=== PATIENT | male | born 1985 | race Two or more races ===

== ENCOUNTER 2024-04-30 11:24 | Inpatient (IN) | payer MEDICAID, OTHER ==
[~2024-04-30] VITALS: Ht 165.1 cm; Wt 72.5 kg
[2024-04-30] MEDS: SODIUM CHLORIDE 0.9% 1,000 ML IV ONE ×2 (11:42→12:11)
[2024-04-30 12:30] LABS: Basophils # (auto) 0 10 ^3/uL (0-0.2); Basophils % (auto) 0.7 % (0.0-2.0); Eosinophils # (auto) 0 10 ^3/uL (0-0.8); Eosinophils % (auto) 0.7 % (0.0-7.0); Hematocrit 45.2 % (41.0-53.0); Hemoglobin 15.4 g/dL (13.5-17.5); Lymphocytes # (auto) 0.9 10 ^3/uL (0.4-5.4); Lymphocytes % (auto) 14.8 % (10.0-50.0); Mean Corpuscular Hemoglobin 31.2 pg (28.0-32.0); Mean Corpuscular Volume 91.9 fL (80.0-100.0); Monocytes # (auto) 0.7 10 ^3/uL (0-1.3); Monocytes % (auto) 10.5 % (0.0-12.0); Neutrophils # (auto) 4.5 10 ^3/uL (1.6-8.6); Neutrophils % (auto) 73.3 % (37.0-80.0); Nucleated Red Blood Cells % 0.3 %; Platelet Count (auto) 250 10^3/uL (140-450); Red Blood Cells 4.92 10^6/uL (4.5-5.90); Red Cell Distribution Width 12.9 % (11.8-14.3); White Blood Cell 6.2 10^3/uL (4.4-10.8)
[2024-04-30 12:39] LABS: Chloride 110 mmol/L (98-107); Potassium 3.6 mmol/L (3.5-5.1); Sodium 142 mmol/L (136-145)
[2024-04-30 12:40] LABS: Anion Gap 5 (5-15); Calcium 8.7 mg/dL (8.7-10.4); Carbon Dioxide 27 mmol/L (20-30)
[2024-04-30 12:44] LABS: INR 1.09 (0.9-1.15); Partial Thromboplastin Time 31.6 SEC (24.5-34.5); Prothrombin Time 11.5 sec (9.3-11.8)
[2024-04-30 12:45] LABS: BUN/Creatinine Ratio 13.7 (10.0-20.0); Blood Urea Nitrogen 10 mg/dL (9-23); Glucose 105 mg/dL (74-106)
[2024-04-30 13:20] LABS: Urine Bacteria FEW /hpf (None Seen); Urine Blood Negative /uL (Negative); Urine Clarity Clear (Clear); Urine Color Yellow (Yellow); Urine Mucus FEW (None Seen); Urine Protein, UAD Negative (Negative); Urine Specific Gravity 1.023 (1.001-1.035); Urine Urobilinogen Normal (Negative); Urine WBC <1 /hpf (0 - 3)
[2024-04-30] MEDS ORDERED: ONDANSETRON HCL 4 MG/2 ML VIAL IV PRN (15:00)
[2024-04-30 15:31] VITALS: PULSE 67; RESP 18; O2SAT 99
[2024-04-30 15:45] LABS: Hematocrit 46.1 % (41.0-53.0); Hemoglobin 15.6 g/dL (13.5-17.5)
[2024-04-30 16:04] LABS: Albumin 4.5 g/dL (3.2-4.8); Bilirubin, Direct 0.2 mg/dL (<0.3); Bilirubin, Total 0.5 mg/dL (0.2-1.0); Total Protein 7.9 g/dL (5.7-8.2)
[2024-04-30] MEDS: LACTATED RINGER'S 1,000 ML IV ONE (17:19)
[2024-04-30] MEDS ORDERED: chlordiazePOXIDE HCL 25 MG CAP PO PRN (17:30)
[2024-04-30 19:24] LABS: Amphetamine Screen, Urine Neg (NEGATIVE)
[2024-04-30 19:25] LABS: Barbiturate Scree,Urine Neg (NEGATIVE); Benzodiazephine Screen, Urine Neg (NEGATIVE); Cannabinoid Screen, Urine Neg (NEGATIVE); Cocaine Screen, Urine Neg (NEGATIVE); Opiate Scree,Urine Neg (NEGATIVE); Phencyclidine Screen, Urine Neg (NEGATIVE)
[2024-04-30 20:00] VITALS: RESP 16
[2024-04-30 21:00] VITALS: BP 111/65; PULSE 59; RESP 20; TEMP 98.2; O2SAT 98
[2024-04-30] MEDS: DOCUSATE SOD 100 MG CAP PO PRN (21:24)
[2024-04-30] MEDS: GOLYTELY 4L KIT PO ONE (21:35)
[2024-05-01] VITALS (8 sets, daily range): BP systolic 97–123; BP diastolic 54–76; PULSE 61–91; RESP 15–20; TEMP 97.5–107; O2SAT 95–100
[2024-05-01] MEDS: MAGNESIUM CITRATE SOLUTION 300 ML BTL PO ONE (05:49)
[2024-05-01] MEDS: GOLYTELY 4L KIT PO ONE (05:49)
[2024-05-01] MEDS: PANTOPRAZOLE 40 MG TAB PO SCH (05:53)
[2024-05-01 06:41] LABS: Basophils # (auto) 0 10 ^3/uL (0-0.2); Eosinophils # (auto) 0.1 10 ^3/uL (0-0.8); Eosinophils % (auto) 2.2 % (0.0-7.0); Hematocrit 45.8 % (41.0-53.0); Hemoglobin 15.9 g/dL (13.5-17.5); Lymphocytes # (auto) 1.8 10 ^3/uL (0.4-5.4); Mean Corpuscular Hemoglobin 31.2 pg (28.0-32.0); Mean Corpuscular Hgb Conc. 34.7 g/dL (32.0-36.0); Mean Corpuscular Volume 90.1 fL (80.0-100.0); Monocytes # (auto) 0.7 10 ^3/uL (0-1.3); Monocytes % (auto) 13.8 % (0.0-12.0); Neutrophils # (auto) 2.2 10 ^3/uL (1.6-8.6); Nucleated Red Blood Cells % 0.2 %; Platelet Count (auto) 268 10^3/uL (140-450); Red Blood Cells 5.08 10^6/uL (4.5-5.90); Red Cell Distribution Width 12.9 % (11.8-14.3); White Blood Cell 4.9 10^3/uL (4.4-10.8)
[2024-05-01] MEDS ORDERED: OMNIPAQUE 12mg/ml 500ml ORAL SOLUTION PO ONE (06:43)
[2024-05-01 07:05] LABS: Alanine Aminotransferase 30 U/L (7-40); Albumin 4.6 g/dL (3.2-4.8); Alkaline Phosphatase 74 U/L (46-116); Anion Gap 5 (5-15); Aspartate Aminotransferase 21 U/L (13-40); BUN/Creatinine Ratio 7.7 (10.0-20.0); Blood Urea Nitrogen 6 mg/dL (9-23); Calcium 9.7 mg/dL (8.7-10.4); Carbon Dioxide 28 mmol/L (20-30); Chloride 106 mmol/L (98-107); Glucose 87 mg/dL (74-106); Magnesium 2.1 mg/dL (1.6-2.6); Potassium 3.7 mmol/L (3.5-5.1); Sodium 139 mmol/L (136-145)
[2024-05-01 07:06] LABS: Bilirubin, Total 0.8 mg/dL (0.2-1.0)
[2024-05-01] MEDS: THIAMINE HCL 100 MG TAB PO SCH (10:00)
[2024-05-01] MEDS: FOLIC ACID 1 MG TAB PO SCH (10:00)
[2024-05-01] MEDS: fentaNYL CITRATE 100 MCG/2 ML VL ONE (17:03)
[2024-05-01] MEDS: MIDAZOLAM HCL 5 MG/ML-1ML VIAL ONE (17:03)
[2024-05-01] MEDS: diphenhdrAMINE HCL 50 MG/1 ML VL ONE (17:09)
[2024-05-02] VITALS (7 sets, daily range): BP systolic 93–112; BP diastolic 53–69; PULSE 45–73; RESP 16–21; TEMP 36.6; O2SAT 97–100
[2024-05-02 06:40] LABS: Basophils # (auto) 0 10 ^3/uL (0-0.2); Basophils % (auto) 0.9 % (0.0-2.0); Eosinophils # (auto) 0.2 10 ^3/uL (0-0.8); Hematocrit 44.9 % (41.0-53.0); Hemoglobin 15.4 g/dL (13.5-17.5); Lymphocytes # (auto) 1.8 10 ^3/uL (0.4-5.4); Lymphocytes % (auto) 35.3 % (10.0-50.0); Mean Corpuscular Hemoglobin 31.2 pg (28.0-32.0); Mean Corpuscular Hgb Conc. 34.3 g/dL (32.0-36.0); Mean Corpuscular Volume 91.2 fL (80.0-100.0); Monocytes # (auto) 0.7 10 ^3/uL (0-1.3); Monocytes % (auto) 13.9 % (0.0-12.0); Neutrophils # (auto) 2.3 10 ^3/uL (1.6-8.6); Neutrophils % (auto) 45.9 % (37.0-80.0); Nucleated Red Blood Cells % 0.1 %; Platelet Count (auto) 267 10^3/uL (140-450); Red Blood Cells 4.93 10^6/uL (4.5-5.90)
[2024-05-02 06:41] LABS: Chloride 107 mmol/L (98-107); Potassium 4.3 mmol/L (3.5-5.1); Sodium 139 mmol/L (136-145)
[2024-05-02 06:42] LABS: Anion Gap 6 (5-15); Calcium 9.6 mg/dL (8.7-10.4); Carbon Dioxide 26 mmol/L (20-30)
[2024-05-02 06:47] LABS: BUN/Creatinine Ratio 9.2 (10.0-20.0); Blood Urea Nitrogen 7 mg/dL (9-23); Glucose 88 mg/dL (74-106)
[2024-05-02] MEDS: LACTULOSE 20Gm/30ML SOLN PO SCH (10:00)
[2024-05-02] MEDS ORDERED: HYDR2.5L4 TOP (15:24)
[2024-05-02] MEDS ORDERED: DOCU-94 PO (15:24)
[2024-05-02] MEDS: TAMSULOSIN HYDROCHLORIDE 0.4 MG CAP PO SCH (17:15)
[2024-05-03 09:06] LABS: Hepatitis B Surface Antigen Negative (Negative)
[2024-05-03 09:26] LABS: Hepatitis C Antibody Negative (Negative)
== END 2024-05-02 18:10 | disposition home or self-care (01) | DRG 254 ==
LOC: EDBD 11:24 → ER 11:24 → OVERFLOW 14:59 → CENTRAL 17:59
PROVIDERS: ATTEND Internal Medicine
PROC: 0DBE8ZX Excision of Large Intestine, Via Natural or Artificial Opening Endoscopic, Diagnostic (ICD-10-PCS; principal; 2024-05-01 16:55)
DX: K62.89 Other specified diseases of anus and rectum (principal); D64.9 Anemia, unspecified; K59.00 Constipation, unspecified; K64.9 Unspecified hemorrhoids; F10.90 Alcohol use, unspecified, uncomplicated; Y90.9 Presence of alcohol in blood, level not specified; N40.0 Benign prostatic hyperplasia without lower urinary tract symptoms
CPT/HCPCS: 36415; 45380; 74176; 80048; 80053; 80076; 80307; 81001; 82270; 83735; 84153; 85014; 85018; 85025; 85610; 85730; 86803; 86850; 86900; 86901; 87340; 96360; 96361; 99291; G0378; J2250